=== PATIENT | male | born 1995 | race African-American/Black ===

== ENCOUNTER 2020-04-29 11:16 | Outpatient (CLI) | payer BC, MEDICAID, SELFPAY ==
--- NOTE | ~2020-04-29 | CT_ITS ---
EXAMINATION: CT sinus wo con DATE: 04/29/2020 12:22 INDICATION: Sinusitis TECHNIQUE: Computed tomography (CT) of the paranasal sinuses was performed without intravenous contra st. The dose-length product was 319.20 mGy-cm. Iterative reconstruction technique was employed. COMPARISON: None FINDINGS: There is extensive mucosal thickening of the frontal, ethmoid and sphenoid sinuses. Mastoid s are pneumatized. No depressed skull fractures. There is leftward nasal septal deviation. Ostiomeata l units are patent. IMPRESSION: 1. Extensive sinusitis primarily involving the ethmoid and sphenoid sinuses. Reviewed, dictated and finalized at location B.
== END 2020-04-29 11:17 | disposition home or self-care (01) ==
LOC: ANHIMG 11:19
PROVIDERS: Visit Provider Otolaryngology
DX: J38.7 Other diseases of larynx (principal)
CPT/HCPCS: 70486

== ENCOUNTER 2020-05-17 01:07 | Outpatient (CLI) | payer BC, SELFPAY ==
[2020-05-17 19:48] LABS: SARS-CoV-2 RNA PCR Negative
== END 2020-05-17 01:08 | disposition home or self-care (01) ==
LOC: ANHCOVIDDT 01:07
PROVIDERS: Visit Provider Otolaryngology
DX: Z01.818 Encounter for other preprocedural examination (principal); Z20.828 Contact with and (suspected) exposure to other viral communicable diseases
CPT/HCPCS: 87635; C9803; U0003

== ENCOUNTER 2020-05-20 00:35 | Day surgery (SDC) | payer BC, MEDICAID, SELFPAY ==
[2020-05-10 09:57] VITALS: BMI 39.7
--- NOTE | 2020-05-19 16:10 | PM.IMHP ---
H&P: HPI History of Present Illness Date/Time: 05/19/20 16:10 Chief complaint: Chronic Sinusitis Narrative: Jose Smith Jr. is a 25 year old male With a past medical history of CRS as well as nasal obstruction and a nasopharyngeal cyst with recent CT demonstrating all the aforementioned issues. No changes in medical history no changes in symptoms. The patient presents for surgery. Review of Systems Constitutional: Constitutional: Denies fatigue, Denies fever(s) and Denies lethargy Eyes: Eyes: Denies blurry vision and Denies change in vision ENT: Reports as per HPI Cardiovascular: Cardiovascular: Denies chest pain Respiratory: Respiratory: Denies cough Endocrine: Endocrine: Denies fatigue Hematologic/Lymphatic: Hematologic/Lymphatic: Denies easy bleeding, Denies easy bruising and Denies lymphadenopathy Allergic/Immunologic: Allergic/Immunologic: Denies seasonal rhinorrhea [facility] Social History Social History (System 04/13/20 @ 09:25 by Adeline Perla) Smoking status: Never smoker Alcohol intake: current Drinks per week: 1 Substance use: never Spiritual care concerns: No Meds Home Medications and Allergies Home Medications Medication Instructions Recorded Confirmed Type fluticasone propionate 50 1 spray NASAL Q12H #15.8 ml 03/16/20 05/10/20 Rx mcg/actuation nasal spray,suspension azelastine 137 mcg (0.1 %) nasal 1 spray INTRANASAL Q12H #30 ml 04/18/20 05/10/20 Rx spray aerosol omeprazole 40 mg capsule,delayed 40 mg PO DAILY 04/18/20 05/10/20 History release albuterol sulfate 1 inh INHALATION Q6H PRN 05/10/20 05/10/20 History Allergies Allergy/AdvReac Type Severity Reaction Status Date / Time No Known Allergies Allergy Verified 05/10/20 09:57 Exam Const: General: cooperative, healthy appearing, comfortable, well developed and alert HENMT: Head: normal to inspection, normocephalic and atraumatic Ears: hearing grossly normal bilaterally, external ears normal, TM's normal bilaterally and EAC's normal General nose exam: Normal external nose present, Normal nares present, No nasal polyps present, Normal nasal mucous membranes and turbinates present and Normal septum present Face and sinus: normal facial exam Mouth: Yes Normal oral and palatal mucosa present, Yes lip normal, Yes tongue normal, Yes oropharynx normal and Yes moist mucous membranes Teeth and gingiva: dentition normal and gingiva normal Throat: posterior oropharynx normal, tonsils normal and uvula midline Eyes: General: appearance normal, both eyes and all related structures Periorbital: periorbital findings normal Eyelids: eyelids normal Conjunctivae: conjunctivae normal Sclera: sclerae normal Neck: Neck: normal visual inspection, full ROM and no lymphadenopathy Thyroid: thyroid normal Lymphatic: no lymphadenopathy noted Resp: Effort & Inspection: normal respiratory effort and able to speak in complete sentences Cardio: Jugular venous distension: no JVD Neuro: Cranial nerves: Yes CN's II-XII intact bilaterally Assessment and Plan Assessment and plan (1) Lesion of nasopharynx: Code(s): J39.2 - Other diseases of pharynx Status: Acute Assessment and Plan: Plan is for the OR for endoscopic bilateral maxillary antrostomies total ethmoidectomy frontal sinusotomies sphenoidotomy is a possible endoscopic assisted septoplasty inferior turbinate reduction without fractures as well as marsupialization / excision of a nasopharyngeal cyst/ lesion. The risks and benefits were explained in great detail to the patient and he voiced understanding of the aforementioned risks. These risks include bleeding blindness infection damage to surrounding structures CSF leak need for further procedures need for operative repair of damaged per tissues neurologic/nerve damage septal perforation and regrowth of inferior turbinates. Again the patient voiced understanding and agreed. (2) Chronic th
[2020-05-20] VITALS (9 sets, daily range): BP systolic 138–171; BP diastolic 76–110; PULSE 90–105; RESP 12–20; TEMP 36.7; O2SAT 98–100
--- NOTE | 2020-05-20 09:28 | P.PNAN_ITS ---
Anes - Initial Pre Proc Eval Procedure: Operation Date: 05/20/20 11:[address] Guided Maxillary Antrostomy, Anterior And Posterior Ethmoidectomy, Frontal Sinusotomy, Bilateral Sphenoidotomy - Deshaun Joshi MD s Septoplasty - Deshaun Joshi MD Date/Time: 05/20/20 09:28 Surgeon: Deshaun Joshi MD Pre Op Diagnosis: Chronic Sinusitis Patient Data Age: 25 Gender: M Height: 5 ft 10 in Weight: 125.65 kg Allergies Allergy/AdvReac Type Severity Reaction Status Date / Time No Known Allergies Allergy Verified 05/20/20 09:19 Home Medications Medication Instructions Recorded Confirmed Type fluticasone propionate 50 1 spray NASAL Q12H #15.8 ml 03/16/20 05/10/20 Rx mcg/actuation nasal spray,suspension azelastine 137 mcg (0.1 %) nasal 1 spray INTRANASAL Q12H #30 ml 04/18/20 05/10/20 Rx spray aerosol omeprazole 40 mg capsule,delayed 40 mg PO DAILY 04/18/20 05/10/20 History release albuterol sulfate 1 inh INHALATION Q6H PRN 05/10/20 05/10/20 History Patient hx anesthesia problems: none Family hx anesthesia problems: none [facility] Past Medical History Medical History Asthma GERD (gastroesophageal reflux disease) Social History Social History Smoking status: Never smoker Alcohol intake: current Drinks per week: 1 Substance use: never Spiritual care concerns: No Anes - Eval Final PreProcedure Day of Procedure 05/20/20 09:28 Patient weight: morbidly obese Heart: regular rate and rhythm Lungs: clear to auscultation Airway: Mallampati scale class II Neurological: alert and oriented Last oral intake: >/= 8 hours ASA classification: III Emergent: no Anesthetic plan: proceed Anesthesia type and monitoring: general ETT and standard monitoring Informed Consent: The patient's anesthetic plan and its attendant risks and benefits were discussed with the patient/family/POA. Questions were solicited and answers provided to the satisfaction of the patient/family/POA.
[2020-05-20] MEDS: ACETAMINOPHEN 500 MG TABLET 1000 MG PO (09:33)
[2020-05-20] MEDS: LACTATED RINGERS 1,000 ML 30 ML IV CONT ×2 (09:33→13:33)
--- NOTE | 2020-05-20 09:49 | WPDHPUPDATE1 ---
History and Physical Update Update Date/Time: 05/20/20 09:49 History and Physical has been reviewed, including an updated exam of the patient. There are NO changes in the patient's condition. Risks, benefits, and alternatives have been discussed and questions answered. Patient agrees to proceed with procedure.
[2020-05-20] MEDS: ceFAZolin 2 GM/D5W 50 ML 2 GM/50 ML BAG IVPB (10:48)
[2020-05-20] MEDS: OXYMETAZOLINE HCL 0.05% NAS 15 ML BTL (*BKC) 1 SPRAY NASAL (11:00)
[2020-05-20] MEDS: LIDO 1%/EPINEPHRINE 1:100,000 20 ML VIAL 6 ML INFILTRATE (11:01)
--- NOTE | 2020-05-20 14:09 | PM.PROC ---
Procedure Note - Detailed Date of procedure: 05/20/20 Pre-op diagnosis: Chronic Sinusitis nasopharyngeal cyst septal deviation inferior turbinate hypertrophy Post-op diagnosis: same Procedure performed: 1. Endoscopic assisted marsupialization of nasopharyngeal cyst 2. Endoscopic septoplasty 3. Endoscopic inferior turbinate submucosal resection with outfracture 4. Endoscopic bilateral maxillary antrostomies 5. Endoscopic bilateral total ethmoidectomies 6. Endoscopic bilateral sphenoidotomies 7. Endoscopic bilateral frontal sinusotomies Description of procedure: the patient was correctly identified and consent was verified in the preoperative holding area. The patient was then brought to the operating room and a time-out was performed. General anesthesia was induced and endotracheal tube was secured the patient's airway and taped to the left lower lip. The patient was then prepped and positioned for the aforementioned procedures. Under endoscopic guidance 10 cc of 1% lidocaine with 1 100,000 parts epinephrine was injected into the nasal septum in the submucoperichondrial plane. A 15 blade was then utilized to perform a Adán incision elevating the left mucoperichondrium. The septum was then crossed over the right mucoperichondrial flap was elevated. The deviated nasal septum which was on the left side was then removed. No perforations were noted. A right-sided maxillary antrostomy was then performed by medialized the middle turbinate with a [place] and fracturing the uncinate process anteriorly using a double ball tip probe. A backbiter was then utilized to perform the maxillary antrostomy which was widened with a through cut. [place] as well as microdebrider was then utilized to perform a total ethmoidectomy. The sphenoid os was confirmed with image guidance and entered using a sphenoid punch. This was widened using Kerrison forceps. The frontal sinusotomy was then performed using Kerrison forceps as well as Cobra using image guidance and a 70 degree scope. Similar procedures were performed on the left side. The septum was closed anteriorly with a 5 0 fast gut suture and in a quilting fashion using 4 0 Monocryl suture. The nasopharynx was then addressed. The hypertrophied tissue was biopsied using Pavithra forceps and removed using microdebrider. Hemostasis was achieved using intermittent application of Afrin-soaked pledgets. At the end the pledgets were removed and he most cases was noted to be excellent. This marked end the procedure. Care the patient was turned over to Anesthesiology. I have performed all dictated portions of the procedure. Anesthesia: GLMA Surgeon: Deshaun Joshi MD Estimated blood loss (mL): 50 Complications: No immediate complications Condition: stable Disposition: PACU
== END 2020-05-20 16:00 | disposition home or self-care (01) ==
PROVIDERS: Visit Provider Otolaryngology
PROC: (CPT 31256; principal; 2020-05-20 11:15)
PROC: (CPT 30520; 2020-05-20 11:15)
DX: J32.9 Chronic sinusitis, unspecified (principal); J34.89 Other specified disorders of nose and nasal sinuses; J34.2 Deviated nasal septum; J34.3 Hypertrophy of nasal turbinates; J45.909 Unspecified asthma, uncomplicated; K21.9 Gastro-esophageal reflux disease without esophagitis; E66.01 Morbid (severe) obesity due to excess calories; Z68.39 Body mass index [BMI] 39.0-39.9, adult
CPT/HCPCS: 31256; 31257; 31253; 61782; 30520; 30140; 88305; A9270; J0330; J0690; J1100; J2250; J2405; J2704; J3010; J7120